=== PATIENT | female | born 1995 | race Two or more races ===

== ENCOUNTER 2022-08-27 11:12 | Emergency (ER) | payer OTHER ==
[~2022-08-27] VITALS: Ht 157.5 cm; Wt 84.4 kg
[2022-08-27] MEDS ORDERED: PAXLOVID 300-11 EACH PO (17:08)
== END 2022-08-27 17:27 | disposition home or self-care (01) ==
LOC: ER 11:12
DX: U07.1 COVID-19 (principal); J45.909 Unspecified asthma, uncomplicated; Z91.041 Radiographic dye allergy status; Z88.8 Allergy status to other drugs, medicaments and biological substances